=== PATIENT | male | born 1975 | race Caucasian/White ===

== ENCOUNTER 2017-04-29 14:46 | Inpatient (IN) | payer BC ==
[~2017-04-29] VITALS: Ht 157.5 cm; Wt 91.0 kg
[~2017-04-29 14:46] MED LIST: CEFAZOLIN 1,000 MG ONE; DEXAMETHASONE 4 MG/ML, 1ML ONE; ONDANSETRON 2MG/ML, 2ML ONE; PROPOFOL 10 MG/ML, 20ML ONE; ROCURONIUM 10 MG/ML,10ML ONE; SUCCINYLCHOLINE 20 MG/ML, 10ML ONE
[2017-04-29] MEDS ORDERED: ONDANSETRON 2MG/ML, 2ML IVPush ONE ×2 (15:30→16:30)
[2017-04-29] MEDS ORDERED: SODIUM CHLORIDE FLUSH 10ML SYR IVF ONE (15:30)
[2017-04-29] MEDS ORDERED: SODIUM CHLORIDE 0.9% 1,000ML IVBOLUS ONE (15:30)
[2017-04-29] MEDS ORDERED: ONDANSETRON 2MG/ML, 2ML ONE (15:43)
[2017-04-29 16:16] LABS: BASOPHILS # (AUTO) 0.03 x10^3/uL (0-0.1); BASOPHILS % (AUTO) 0 % (0-1); EOSINOPHILS # (AUTO) 0.01 x10^3/uL (0-0.4); EOSINOPHILS % (AUTO) 0 % (1-7); LYMPHOCYTES # (AUTO) 1.56 x10^3/uL (1-3.4); LYMPHOCYTES % (AUTO) 13 % (22-44); MD NO; MEAN CORPUSCULAR HEMOGLOBIN 32.7 pg (27.5-34.5); MEAN CORPUSCULAR HGB CONC 34.3 g/dL (33.2-36.2); MEAN CORPUSCULAR VOLUME 95.6 fL (81-97); MEAN PLATELET VOLUME 8.9 fL (7.4-10.4); MONOCYTES # (AUTO) 0.52 x10^3/uL (0.2-0.8); MONOCYTES % (AUTO) 4 % (2-9); NEUTROPHILS # (AUTO) 9.61 x10^3/uL (1.8-6.8); NEUTROPHILS % (AUTO) 82 % (42-75); PLATELET COUNT 267 x10^3/uL (130-400); RED CELL DISTRIBUTION WIDTH 12.7 % (9.4-14.8)
[2017-04-29] MEDS ORDERED: MORPHINE SULFATE 4 MG/ML, 1ML ONE ×2 (16:20→16:49)
[2017-04-29 16:27] LABS: ALBUMIN 4.1 g/dL (3.4-5.0); ANION GAP 7 mmol/L (5-15); CALCIUM 9.2 mg/dL (8.5-10.1); CHLORIDE 104 mmol/L (98-107)
[2017-04-29] MEDS: MORPHINE SULFATE 4 MG/ML, 1ML IVPush PRN ×2 (16:27→16:51)
[2017-04-29 16:35] LABS: ALANINE AMINOTRANSFERASE 72 U/L (12-78); ALKALINE PHOSPHATASE 78 U/L (45-117); BILIRUBIN,TOTAL 0.8 mg/dL (0.2-1.0); CREATININE 0.97 mg/dL (0.7-1.3)
[2017-04-29] MEDS ORDERED: CEFOTETAN PMX 2GM/50ML 50 ML IV ONE (18:00)
[2017-04-29] MEDS ORDERED: HYDROmorphone 2 MG/ML, 1ML IVPush PRN (18:00)
[2017-04-29] MEDS ORDERED: HYDROmorphone 2 MG/ML, 1ML ONE (18:14)
[2017-04-29] MEDS ORDERED: FENTANYL PF 250 MCG/5ML ONE (19:22)
[2017-04-29] MEDS ORDERED: MIDAZOLAM 1 MG/ML, 2ML ONE (19:22)
[2017-04-29] MEDS ORDERED: BUPIVACAINE/PF 0.5% ONE (19:24)
[2017-04-29] MEDS ORDERED: EPINEPHRINE 1 MG/ML, 1ML ONE (19:24)
[2017-04-29] MEDS: LACTATED RINGERS 1,000 ML IV SCH (19:34)
[2017-04-29] MEDS ORDERED: BUPIVACAINE/PF 0.5% INFIL ONE (19:59)
[2017-04-29] MEDS ORDERED: OXYcodone 5 MG/5 ML ORAL.SOL UDC PO PRN (20:00)
[2017-04-29] MEDS ORDERED: ACETAMINOPHEN 650 MG/20.3 ML UDC PO PRN (20:00)
[2017-04-29] MEDS ORDERED: METOCLOPRAMIDE 5 MG/ML, 2ML IV PRN (20:00)
[2017-04-29] MEDS ORDERED: FENTANYL PF 100 MCG/2ML IV PRN (20:00)
[2017-04-29] MEDS ORDERED: LABETALOL 5MG/ML, 20ML IV PRN (20:00)
[2017-04-29] MEDS ORDERED: EPINEPHRINE 1 MG/ML, 1ML INFIL ONE (20:00)
[2017-04-29] MEDS ORDERED: ACETAMINOPHEN 325 MG TABLET PO PRN (20:00)
[2017-04-29] MEDS ORDERED: ONDANSETRON 2MG/ML, 2ML IVPush PRN ×2 (20:00)
[2017-04-29] MEDS ORDERED: KETOROLAC 30 MG/1 ML IV PRN (20:00)
[2017-04-29] MEDS ORDERED: hydrALAzine 20 MG/ML, 1ML IV PRN (20:00)
[2017-04-29] MEDS ORDERED: HYDROmorphone 2 MG/ML, 1ML IV PRN ×2 (20:00)
[2017-04-29] MEDS ORDERED: OXYcodone 5 MG/5 ML ORAL.SOL UDC ONE (20:57)
[2017-04-29] MEDS ORDERED: ACETAMINOPHEN 650 MG/20.3 ML UDC ONE (20:57)
[2017-04-30 00:01] VITALS: BP 130/70
[2017-04-30] MEDS: OXYcodone/APAP 5/325MG TABLET PO PRN ×4 (00:57→09:17)
[2017-04-30 03:46] VITALS: BP 137/74
[2017-04-30 05:14] LABS: BASOPHILS # (AUTO) 0.01 x10^3/uL (0-0.1); BASOPHILS % (AUTO) 0 % (0-1); EOSINOPHILS % (AUTO) 0 % (1-7); LYMPHOCYTES # (AUTO) 1.37 x10^3/uL (1-3.4); LYMPHOCYTES % (AUTO) 13 % (22-44); MD NO; MEAN CORPUSCULAR HEMOGLOBIN 32.7 pg (27.5-34.5); MEAN CORPUSCULAR HGB CONC 34.1 g/dL (33.2-36.2); MEAN CORPUSCULAR VOLUME 95.8 fL (81-97); MEAN PLATELET VOLUME 8.9 fL (7.4-10.4); MONOCYTES # (AUTO) 0.49 x10^3/uL (0.2-0.8); MONOCYTES % (AUTO) 5 % (2-9); NEUTROPHILS # (AUTO) 8.55 x10^3/uL (1.8-6.8); NEUTROPHILS % (AUTO) 82 % (42-75); PLATELET COUNT 246 x10^3/uL (130-400); RED CELL DISTRIBUTION WIDTH 12.5 % (9.4-14.8)
[2017-04-30 05:23] LABS: CHLORIDE 104 mmol/L (98-107)
[2017-04-30 05:29] LABS: ALANINE AMINOTRANSFERASE 111 U/L (12-78); ALBUMIN 3.3 g/dL (3.4-5.0); ALKALINE PHOSPHATASE 63 U/L (45-117); ANION GAP 7 mmol/L (5-15); BILIRUBIN,TOTAL 0.7 mg/dL (0.2-1.0); CALCIUM 8.3 mg/dL (8.5-10.1); CREATININE 0.99 mg/dL (0.7-1.3); TOTAL PROTEIN 6.5 g/dL (6.4-8.2)
[2017-04-30] MEDS: LACTATED RINGERS 1,000 ML IV SCH (05:34)
[2017-04-30] MEDS ORDERED: CEFOTETAN PMX 1GM/50ML 50 ML IVPB SCH (06:00)
[2017-04-30 08:01] VITALS: BP 123/78
[2017-04-30] MEDS ORDERED: OXYC1TAB7 PO (11:31)
[2017-04-30 12:03] VITALS: BP 134/55
[2017-04-30] MEDS ORDERED: OXYC5CAP2 PO (13:16)
== END 2017-04-30 13:27 | disposition home or self-care (01) | DRG 419 ==
LOC: OR 19:12 → EDIP 19:33 → 4NOR 21:30 → DCLOUNGE 04-30 13:04
PROVIDERS: ADMIT Surgery; ATTEND Surgery
PROC: 0FT44ZZ Resection of Gallbladder, Percutaneous Endoscopic Approach (ICD-10-PCS; principal; 2017-04-29 14:45)
DX: K80.00 Calculus of gallbladder with acute cholecystitis without obstruction (principal); K76.0 Fatty (change of) liver, not elsewhere classified
CPT/HCPCS: 36415; 76700; 80053; 83690; 85025; 88304; 96361; 96365; 96375; J0171; J0690; J1100; J1170; J2250; J2405; J2704; J3010; J3490; J0330; J7030; S0074

== ENCOUNTER 2020-03-29 00:29 | Emergency (ER) | payer BC ==
[~2020-03-29] VITALS: Ht 160 cm; Wt 95.0 kg
[~2020-03-29 00:29] MED LIST changes: -CEFAZOLIN 1,000 MG ONE; -DEXAMETHASONE 4 MG/ML, 1ML ONE; -ONDANSETRON 2MG/ML, 2ML ONE; +OXYC1TAB7 PO; +OXYC5CAP2 PO; -PROPOFOL 10 MG/ML, 20ML ONE; -ROCURONIUM 10 MG/ML,10ML ONE; -SUCCINYLCHOLINE 20 MG/ML, 10ML ONE
[2020-03-29 00:33] VITALS: BP 166/107
[2020-03-29] MEDS ORDERED: BUPIVACAINE 0.25% ONE (01:04)
[2020-03-29] MEDS ORDERED: LIDOCAINE-MPF 1%, 2ML ONE (01:04)
[2020-03-29] MEDS ORDERED: LIDOCAINE-MPF 1%, 2ML INFIL ONE (01:30)
[2020-03-29] MEDS ORDERED: MORPHINE SULFATE 4 MG/ML, 1ML IVPush PRN (01:30)
[2020-03-29] MEDS ORDERED: BUPIVACAINE 0.25% INFIL ONE (01:30)
--- NOTE | 2020-03-29 02:39 | NUR ---
charge preparation technician: saw this pt leave @[id number]. did not return or sign out.
== END 2020-03-29 02:41 | disposition left against medical advice (07) ==
LOC: ED 01:00
DX: L03.211 Cellulitis of face (principal); K04.7 Periapical abscess without sinus; R51.9 Headache, unspecified; M79.89 Other specified soft tissue disorders
CPT/HCPCS: 99281